=== PATIENT | male | born 1990 | race Caucasian/White ===

== ENCOUNTER 2018-06-09 23:18 | Emergency (ER) | payer SELFPAY ==
[~2018-06-09] VITALS: Ht 177.8 cm; Wt 90.7 kg
[2018-06-09 23:35] VITALS: BP_SYST 145
--- NOTE | 2018-06-09 23:35 | NUR ---
Patient to ER bed 7 to gown for evaluation. Side rails up.
--- NOTE | 2018-06-09 23:50 | NUR ---
ER at bedside examining patient.
--- NOTE | 2018-06-10 00:10 | NUR ---
Patient arrived [id number] able to verbalize needs. Complaints of SOB and sore throat for 2 days and mild fever. Able to ambulate without assistance. Denies any chest pain, N/V, or dizziness. States he has sleep apnea. Currently on 2L NC to aasssis to assist with respirations.
[2018-06-10] MEDS ORDERED: IPRATROPIUM/ALBUTEROL SULFATE 3 ML AMPUL.NEB (DUONEB) INH ONE (00:15)
[2018-06-10 01:41] LABS: CALCIUM 9.1 mg/dL (8.4-11.0); CREATININE 0.81 mg/dL (0.55-1.30); POTASSIUM 3.7 mmol/L (3.5-5.1); TOTAL BILIRUBIN 0.3 mg/dL (0.0-1.0)
[2018-06-10 01:42] LABS: ALBUMIN 2.8 g/dL (3.4-4.8)
[2018-06-10 01:59] LABS: HEMATOCRIT 45.1 % (36-54); MEAN CORPUSCULAR HEMOGLOBIN 30 pg (27-31); MEAN CORPUSCULAR HGB CONC 33 % (32-36); MEAN CORPUSCULAR VOLUME 89 fL (79.0-98.0); PLATELET COUNT (AUTO) 208 K/uL (130-430); RED BLOOD CELL COUNT(AUTO) 5.07 MIL/uL (4.2-6.2); RED CELL DISTRIBUTION WIDTH 12.9 % (9.0-15.0); WHITE BLOOD COUNT (AUTO) 11.8 K/uL (4.8-10.8)
[2018-06-10 02:00] LABS: BASOPHILS # (AUTO) 0.1 K/uL (0.0-0.2); BASOPHILS % (AUTO) 0.5 % (0.0-2.0); EOSINOPHILS # (AUTO) 0.5 K/uL (0.0-0.4); EOSINOPHILS % (AUTO) 3.9 % (0.0-4.0); LYMPHOCYTES # (AUTO) 3.2 K/uL (1.0-5.5); LYMPHOCYTES % (AUTO) 27.1 % (20.5-51.5); MONOCYTES # (AUTO) 0.6 K/uL (0.0-1.0); MONOCYTES % (AUTO) 5.3 % (1.7-9.3); NEUTROPHILS # (AUTO) 7.4 K/uL (1.8-7.7); NEUTROPHILS % (AUTO) 63.2 % (40.0-70.0)
--- NOTE | 2018-06-10 02:00 | NUR ---
Pt resting comfortably for bed. Will cont. to monitor.
[2018-06-10] MEDS ORDERED: AMOXICILLIN 500 MG CAPSULE PO ONE (02:30)
--- NOTE | 2018-06-10 03:00 | NUR ---
Pt resting comfortably for bed. Will cont. to monitor.
--- NOTE | 2018-06-10 04:00 | NUR ---
Pt resting comfortably for bed. Will cont. to monitor.
--- NOTE | 2018-06-10 05:45 | NUR ---
Pt resting comfortably for bed. Will cont. to monitor.
[2018-06-10 06:58] VITALS: BP_SYST 148
--- NOTE | 2018-06-10 06:58 | NUR ---
Patient given written and verbal discharge instructions and verbalizes understanding. ER MD discussed with patient the results and treatment provided. Patient in stable condition. ID arm band removed. Rx of Amoxicillin 500 mg given. Patient educated on pain management and to follow up with PMD. Pain Scale 0/10. Opportunity for questions provided and answered. Medication side effect fact sheet provided.
== END 2018-06-10 06:58 | disposition home or self-care (01) ==
LOC: SED 23:18
DX: J02.0 Streptococcal pharyngitis (principal); J44.9 Chronic obstructive pulmonary disease, unspecified; R03.0 Elevated blood-pressure reading, without diagnosis of hypertension; E66.9 Obesity, unspecified; Z68.28 Body mass index [BMI] 28.0-28.9, adult
CPT/HCPCS: 36415; 71045; 80053; 83880; 85025; 86403; 87081; 93005; 99284